=== PATIENT | female | born 1980 | race African-American/Black ===

== ENCOUNTER 2021-05-17 20:08 | Emergency (ER) | payer MEDICAID ==
[~2021-05-17] VITALS: Ht 165 cm; Wt 55.7 kg
[2021-05-17] MEDS ORDERED: NS IV 1000 ML 1,000 ML IV STA (20:41)
[2021-05-17] MEDS ORDERED: KETOROLAC 30 MG/ML VIAL IVP STA (20:41)
[2021-05-17] MEDS ORDERED: PANTOPRAZOLE 40 MG (PROTONIX) VIAL IV STA (20:41)
[2021-05-17] MEDS ORDERED: KETOROLAC 15 MG/ML VIAL ONE (20:46)
--- NOTE | 2021-05-17 20:46 | ED GI ---
General Chief Complaint: Abdominal/GI Problems Stated Complaint: ABD PAIN Nursing Triage Note: Pt c/o epigastic abd pain since yesterday and frequent "solid" stool. Pt reports nausea w/o vomiting. Denies urinary symptoms or fever. Source of Information: Patient History of Present Illness Date Seen by Provider: May 17, 2021 Time Seen by Provider: 20:18 Initial Comments 40-year-old female complaining of epigastric pain and left flank and lower quadrant pain that started this morning. Yesterday she was having frequent stools but they were solid. She denies any pain or burning with urination. She has had no fever or chills. She states that when she lays back or sitting for an extended period of time she gets nausea but has not had vomiting. She has had Mirena placed in March just before . She denies any other abdominal surgeries. She feels most comfortable when she is leaning over and has her hands on her knees. She did try Pepto-Bismol earlier today and it did not have any effect on her pain so she did not continue the medication. She had not tried any [id number] medications. She denies having pain like this in the past. She denies having any blood in her urine, stool, vaginal bleeding. Timing/Duration: 1-2 Days Severity/Quality: Severe, Cramping, Sharp Location: LLQ, Epigastric, Flank (Left flank) Radiation: LLQ, Epigastric, Flank (Left) Activities at Onset: None Modifying Factors: Worsens With Lying down, Worsens With Palpation Associated Symptoms: No Chest Pain, No Diaphoresis, No Fever/Chills, No Fatigue, No Headache, No Heartburn; Nausea/Vomiting (Nausea when she sits or lays back); No Rash, No Shortness of Air, No Swelling/Mass in Abdomen, No Syncope, No Weakness Allergies and Home Medications Allergies Coded Allergies: No Known Drug Allergies (Unverified , 05/17/21) Patient Home Medication List Home Medication List Reviewed: Yes Dicyclomine HCl (Dicyclomine HCl) 10 Mg Capsule, 10 MG PO Q6H PRN for abdominal pain/cramping Prescribed by: SHELL MEDINA on 05/17/21 6282 Ondansetron (Ondansetron Odt) 4 Mg Tab.rapdis, 4 MG PO Q6H PRN for NAUSEA/VOMITING Prescribed by: SHELL MEDINA on 05/17/212221 Review of Systems Review of Systems Constitutional: No chills, No diaphoresis, No dizziness, No fever EENTM: No Symptoms Reported Respiratory: No Symptoms Reported Cardiovascular: No Symptoms Reported Gastrointestinal: See HPI Genitourinary: Denies Burning, Denies Discharge, Denies Drainage, Denies Frequency Musculoskeletal: back pain (Starting to have some low back pain that she feels is a result of bending over to relieve her epigastric pain) Skin: No rash Psychiatric/Neurological: No Symptoms Reported Hematologic/Lymphatic: Denies Blood Clots Past Aclylko-Wnhrjo-Sylfpz Hx Past Medical History Surgery/Hospitalization HX: Mirena control Mar 2021, Migraines Surgeries: No Respiratory: No Cardiac: No Neurological: Yes Headaches /Migraines Reproductive Disorders: No [employer] History: IUD (Mirena) Genitourinary: No Gastrointestinal: No Musculoskeletal: No Endocrine: No HEENT: No Psychosocial: No Physical Exam Vital Signs Vital Signs - First Documented 05/17/21 20:15 Temp 37.0 Pulse 83 Resp 17 B/P (MAP) 134/84 (101) Pulse Ox 100 O2 Delivery Room Air Capillary Refill : Less Than 3 Seconds Height/Weight/BMI Height: '" Weight: lbs. oz. kg; 20.00 BMI Method: General Appearance: WD/WN, mild distress, other (patient bent over with hands on her knees) HEENT: PERRL/EOMI, pharynx normal Neck: non-tender, full range of motion, supple, normal inspection Respiratory: chest non-tender, lungs clear, normal breath sounds, no respiratory distress, no accessory muscle use Cardiovascular: normal peripheral pulses, regular rate, rhythm Gastrointestinal: normal bowel sounds, soft, no pulsatile mass; No distended; guarding; No rebound; tenderness (epigastric and left flank into LLQ); No mass Rectal: deferred Extremities: normal range of motion, non-tender, normal capillary refill Back: no CVA tenderness, no vertebral tenderness Neurologic/Psychiatric: alert, oriented x 3 Skin: normal color, warm/dry Images 1 - epigastric pain worse with palpation 2 - Left flank and LLQ abdominal pain Progress/Results/Core Measures Results/Orders Lab Results Laboratory Tests Test 05/17/21 20:15 05/17/21 20:50 Range/Units Urine Color YELLOW Urine Clarity CLEAR Urine pH 6.0 5-9 Urine Specific [place] >=1.030 1.016-1.022 Urine Protein NEGATIVE NEGATIVE Urine Glucose (UA) NEGATIVE NEGATIVE Urine Ketones NEGATIVE NEGATIVE Urine Nitrite NEGATIVE NEGATIVE Urine Bilirubin NEGATIVE NEGATIVE Urine Urobilinogen 0.2 < = 1.0 MG/DL Urine Leukocyte Esterase NEGATIVE NEGATIVE Urine RBC (Auto) TRACE-I H NEGATIVE Urine RBC 5-10 H /HPF Urine WBC 2-5 /HPF Urine Squamous Epithelial Cells 2-5 /HPF Urine Crystals NONE /LPF Urine Bacteria MODERATE H /HPF Urine Casts NONE /LPF Urine Mucus LARGE H /LPF Urine Culture Indicated NO Urine Test NEGATIVE NEGATIVE White Blood Count 5.8 4.3-11.0 10^3/uL Red Blood Count 4.37 3.80-5.11 10^6/uL Hemoglobin 13.6 11.5-16.0 g/dL Hematocrit 40 35-52 % Mean Corpuscular Volume 92 80-99 fL Mean Corpuscular Hemoglobin 31 25-34 pg Mean Corpuscular Hemoglobin Concent 34 32-36 g/dL Red Cell Distribution Width 12.8 10.0-14.5 % Platelet Count 230 130-400 10^3/uL Mean Platelet Volume 12.0 9.0-12.2 fL Neutrophils (%) (Auto) 52 42-75 % Lymphocytes (%) (Auto) 33 12-44 % Monocytes (%) (Auto) 10 0-12 % Eosinophils (%) (Auto) 4 0-10 % Basophils (%) (Auto) 1 0-10 % Neutrophils # (Auto) 3.0 1.8-7.8 X 10^3 Lymphocytes # (Auto) 1.9 1.0-4.0 X 10^3 Monocytes # (Auto) 0.6 0.0-1.0 X 10^3 Eosinophils # (Auto) 0.2 0.0-0.3 10^3/uL Basophils # (Auto) 0.1 0.0-0.1 10^3/uL Sodium Level 141 135-145 MMOL/L Potassium Level 4.0 3.6-5.0 MMOL/L Chloride Level 106 98-107 MMOL/L Carbon Dioxide Level 24 21-32 MMOL/L Anion Gap 11 5-14 MMOL/L Blood Urea Nitrogen 7 7-18 MG/DL Creatinine 0.92 0.60-1.30 MG/DL Estimat Glomerular Filtration Rate 81 BUN/Creatinine Ratio 8 Glucose Level 80 70-105 MG/DL Calcium Level 9.7 8.5-10.1 MG/DL Corrected Calcium 9.5 8.5-10.1 MG/DL Total Bilirubin 0.3 0.1-1.0 MG/DL Aspartate Amino Transf (AST/SGOT) 9 5-34 U/L Alanine Aminotransferase (ALT/SGPT) 7 0-55 U/L Alkaline Phosphatase 81 40-136 U/L Total Protein 7.2 6.4-8.2 GM/DL Albumin 4.2 3.2-4.5 GM/DL Lipase 34 8-78 U/L My Orders Orders - SHELL MEDINA MD Comprehensive Metabolic Panel (05/17/21 20:41) Lipase (05/17/21 20:41) Ua Culture If Indicated (05/17/21 20:41) Ed Iv/Invasive Line Start (05/17/21 20:41) Cbc With Automated Diff (05/17/21 20:41) Ct Abdomen/Pelvis Wo (05/17/21 20:41) Ns Iv 1000 Ml (Sodium Chloride 0.9%) (05/17/21 20:41) Ketorolac Injection (Toradol Injection) (05/17/21 20:41) Pantoprazole Injection (Protonix Injecti (05/17/21 20:41) Hcg,Qualitative Urine (05/17/21 20:41) Ketorolac Injection (Toradol Injection) (05/17/21 20:46) Rx-Dicyclomine Capsule (Rx-Bentyl Capsul (05/17/21 22:30) Rx-Ondansetron Po (Rx-Zofran Po) (05/17/21 22:30) Medications Given in ED Current Medications Medications Dose Ordered Sig/Mara Route Start Time Stop Time Status Last Admin Dose Admin Dicyclomine HCl 10 mg Q6H PRN PO 05/17/21 22:30 05/17/21 22:30 DC 05/17/21 22:25 10 MG Ondansetron HCl 4 mg Q6H PRN PO 05/17/21 22:30 05/17/21 22:30 DC 05/17/21 22:25 4 MG Vital Signs/I&O 05/17/21 05/17/21 20:15 22:29 Temp 37.0 Pulse 83 70 Resp 17 15 B/P (MAP) 134/84 (101) 128/84 Pulse Ox 100 100 O2 Delivery Room Air Room Air Blood Pressure Mean: 101 Progress Progress Note #1: Progress Note Obtain urinalysis as well as basic labs. CT scan of the abdomen pelvis to evaluate the epigastric and left flank pain. Give a dose of Toradol 15 mg IV as well as Protonix 40 mg IV and see if that helps with her pain. Give 1 L of normal saline IV for hydration. Differential diagnosis includes peptic ulcer disease, gastritis, diverticulitis, colitis, constipation, pyelonephritis, renal colic Progress Note #2: Progress Note CBC, Chemistry and lipase all stable without acute significant abnormality. Her urinalysis was concentrated with greater than 1.030 specific gravity. She did have some trace blood in the urine and there was bacteria but no leukocyte esterase or nitrites. CT scan shows moderate amount of stool throughout the colon without obstruction or blockage. There is no signs of inflammation. There is no definite signs of appendicitis. There is a 15 mm follicle ovarian cyst on the right ovary. She has Mirena IUD in place in her uterus. No free air or signs of perforation. No signs of kidney stones or ureteral stones to explain her pain. Progress Note #3: Progress Note On review of results with the patient she did report improvement in her symptoms with treatment here in the ED. Reviewed the CT findings of increased gas and stool. We will have her try Bentyl for cramping and spasms as well as Zofran for nausea. Increase fluids. Follow-up liquid diet for the next 24 to 48 hours. If her symptoms are worsening instead of improving have her return or seek medical care for repeat evaluation. Otherwise try a laxative along with the medications. If it is too early and nothing is showing up on her tests right now then the medications she has been prescribed will not mask her symptoms and it will progress and get worse. Diagnostic Imaging Diagonstic Imaging: CT Plain Films/CT/US/NM/MRI: abdomen, pelvis Comments NAME: HARI AYALA Arjun MED REC#: [id number] PT STATUS: REG ER : 1980 PHYSICIAN: SHELL MEDINA MD ADMIT DATE: 05/17/21/ER FS Draft Date of Exam:05/17/21 CT ABDOMEN/PELVIS WO PROCEDURE: CT abdomen and pelvis without contrast. TECHNIQUE: Multiple contiguous axial images were obtained through the abdomen and pelvis without the use of intravenous contrast. Auto Exposure Controls were utilized during the CT exam to meet ALARA standards for radiation dose reduction. INDICATION: Left flank epigastric pain. COMPARISON: None. FINDINGS: Lung bases are clear. The gallbladder is poorly visualized and may be physiologically contracted. There is moderate constipation throughout the colon. There is no obstruction. Visualized solid organs and vascular structures are grossly unremarkable. There is no free air or free fluid. The appendix is not identified. There is an IUD within the uterus. There is a physiological follicle measuring 15 mm in the right ovary. Osseous structures are age-appropriate. IMPRESSION: 1. Mild constipation without obstruction. 2. No renal calculi identified. 3. IUD within the uterus with a right ovarian physiologic follicle. No inflammation identified. Dictated on workstation # [id number] Dict: 05/17/212131 Trans: 05/17/212135 [facility] [id number] Interpreted by: ELPIDIO CORBETT Electronically signed by: Reviewed: Reviewed by Me Departure Impression Primary Impression: Epigastric abdominal pain Additional Impressions: Left flank pain Left lower quadrant abdominal pain Gaseous abdominal distention Disposition: HOME, SELF-CARE Condition: Stable Departure-Patient Inst. Decision time for Depature: 22:19 Referrals: SOHAIL COOPER MD (PCP/Family) Primary Care Physician Patient Instructions: Abdominal Pain, Adult ED, CLEAR LIQUID DIET ADULT/CHILD, Flank Pain ED, Full Liquid Diet, Gastritis ED, Ulcer and Gastritis Diet Add. Discharge Instructions: Try to stay well hydrated and drink plenty of fluids. Follow a liquid diet for next 24 to 48 hours. If you have worsening pain or not improving in next 24 to 48 hours then return or seek medical care for repeat evaluation. Try taking the nausea medicine for helping to settle your stomach and the Dicyclomine (Bentyl) to help with abdominal cramping/pain. Consider taking Miralax or a laxative to help move the gas and stool through and this should help with your pain as well. All discharge instructions reviewed with patient and/or family. Voiced understanding. Scripts Ondansetron (Ondansetron Odt) 4 Mg Tab.rapdis 4 MG PO Q6H PRN for NAUSEA/VOMITING for 3 Days, #12 TAB 0 Refills Prov: SHELL MEDINA MD 05/17/21 Dicyclomine HCl (Dicyclomine HCl) 10 Mg Capsule 10 MG PO Q6H PRN for abdominal pain/cramping for 5 Days, #20 CAP 0 Refills Prov: SHELL MEDINA MD 05/17/21 SHELL MEDINA MD May 17, 2021 20:46
[2021-05-17 20:55] LABS: BILIRUBIN,URINE NEGATIVE (NEGATIVE); CLARITY,URINE CLEAR; COLOR,URINE YELLOW; GLUCOSE, URINE (UA) NEGATIVE (NEGATIVE); KETONES,URINE NEGATIVE (NEGATIVE); LEUKOCYTE ESTERASE ,URINE NEGATIVE (NEGATIVE); NITRITE,URINE NEGATIVE (NEGATIVE); PROTEIN,URINE NEGATIVE (NEGATIVE)
[2021-05-17 21:11] LABS: BACTERIA,URINE MODERATE /HPF
[2021-05-17 21:12] LABS: HEMATOCRIT 40 % (35-52); HEMOGLOBIN 13.6 g/dL (11.5-16.0); MEAN CORPUSCULAR HEMOGLOBIN 31 pg (25-34); MEAN CORPUSCULAR HGB CONC 34 g/dL (32-36); MEAN CORPUSCULAR VOLUME 92 fL (80-99); WHITE BLOOD COUNT 5.8 10^3/uL (4.3-11.0)
[2021-05-17 21:13] LABS: BASOPHILS # (AUTO) 0.1 10^3/uL (0.0-0.1); BASOPHILS % (AUTO) 1 % (0-10); EOSINOPHILS # (AUTO) 0.2 10^3/uL (0.0-0.3); EOSINOPHILS % (AUTO) 4 % (0-10); LYMPHOCYTES # (AUTO) 1.9 X 10^3 (1.0-4.0); LYMPHOCYTES % (AUTO) 33 % (12-44); MONOCYTES # (AUTO) 0.6 X 10^3 (0.0-1.0); MONOCYTES % (AUTO) 10 % (0-12); NEUTROPHILS % (AUTO) 52 % (42-75); PLATELET COUNT 230 10^3/uL (130-400)
[2021-05-17 21:14] LABS: HCG,QUALITATIVE URINE NEGATIVE (NEGATIVE)
[2021-05-17 21:18] LABS: ALBUMIN 4.2 GM/DL (3.2-4.5); BILIRUBIN,TOTAL 0.3 MG/DL (0.1-1.0); CALCIUM 9.7 MG/DL (8.5-10.1); CREATININE SERUM 0.92 MG/DL (0.60-1.30); TOTAL PROTEIN 7.2 GM/DL (6.4-8.2)
--- NOTE | 2021-05-17 21:36 | Diagnostic Imaging Report ---
PROCEDURE: CT abdomen and pelvis without contrast. TECHNIQUE: Multiple contiguous axial images were obtained through the abdomen and pelvis without the use of intravenous contrast. Auto Exposure Controls were utilized during the CT exam to meet ALARA standards for radiation dose reduction. INDICATION: Left flank epigastric pain. COMPARISON: None. FINDINGS: Lung bases are clear. The gallbladder is poorly visualized and may be physiologically contracted. There is moderate constipation throughout the colon. There is no obstruction. Visualized solid organs and vascular structures are grossly unremarkable. There is no free air or free fluid. The appendix is not identified. There is an IUD within the uterus. There is a physiological follicle measuring 15 mm in the right ovary. Osseous structures are age-appropriate. IMPRESSION: 1. Mild constipation without obstruction. 2. No renal calculi identified. 3. IUD within the uterus with a right ovarian physiologic follicle. No inflammation identified. Dictated by: Dictated on workstation # [id number]
[2021-05-17] MEDS ORDERED: DICY10CA12 PO (22:22)
[2021-05-17] MEDS ORDERED: ONDA4TAB11 PO (22:22)
[2021-05-17 22:29] VITALS: BP 128/84
[2021-05-17] MEDS ORDERED: RX-ONDANSETRON 4 MG ODT (ZOFRAN) PPK #4 PO PRN (22:30)
[2021-05-17] MEDS ORDERED: RX-DICYCLOMINE 10 MG (BENTYL) CAP PPK#4 PO PRN (22:30)
== END 2021-05-17 22:29 | disposition home or self-care (01) ==
LOC: ER FS 20:10
DX: R10.13 Epigastric pain (principal); R14.0 Abdominal distension (gaseous)
CPT/HCPCS: 36415; 74176; 80053; 81000; 83690; 84703; 85025